=== PATIENT | male | born 1970 | race Two or more races ===

== ENCOUNTER 2019-10-29 08:07 | Emergency (ER) | payer BC ==
[~2019-10-29] VITALS: Ht 180.3 cm; Wt 127.0 kg
[2019-10-29] MEDS ORDERED: IBUPROFEN 800MG TABLET PO ONE (08:45)
[2019-10-29] MEDS ORDERED: ENALAPRIL 2.5MG TABLET PO ONE (08:45)
[2019-10-29 09:56] VITALS: BP 145/88
== END 2019-10-29 10:19 | disposition home or self-care (01) ==
LOC: ER 08:07
DX: M48.02 Spinal stenosis, cervical region (principal); I10 Essential (primary) hypertension
CPT/HCPCS: 93005; 99284